=== PATIENT | male | born 1990 | race Caucasian/White ===

== ENCOUNTER 2021-06-01 16:06 | Emergency (ER) | payer MEDICAID ==
[~2021-06-01] VITALS: Ht 177.8 cm; Wt 102.3 kg
--- NOTE | 2021-06-01 17:27 | NUR ---
IV D/C'D BY ME, CATH INTACT
[2021-06-01 17:28] VITALS: BP 148/109
== END 2021-06-01 17:34 | disposition home or self-care (01) ==
LOC: ER 16:07
DX: Z00.00 Encounter for general adult medical examination without abnormal findings (principal); R56.9 Unspecified convulsions; F17.200 Nicotine dependence, unspecified, uncomplicated
CPT/HCPCS: 99283